=== PATIENT | female | born 1940 | race Caucasian/White ===

== ENCOUNTER → 2016-12-19 14:50 | Outpatient (CLI) | payer MEDICARE | END | disposition home or self-care (01) | LOC: D.LABREF 14:50 | PROVIDERS: Family Medicine | DX: S70.362A Insect bite (nonvenomous), left thigh, initial encounter (principal) ==

== ENCOUNTER → 2017-01-23 18:24 | Outpatient (CLI) | payer MEDICARE | END | disposition home or self-care (01) | LOC: D.LABREF 18:24 | DX: R05 Cough (principal) ==

== ENCOUNTER → 2017-01-31 12:57 | Outpatient (CLI) | payer MEDICARE | END | disposition home or self-care (01) | LOC: D.CT 12:57 | DX: R91.8 Other nonspecific abnormal finding of lung field (principal) ==

== ENCOUNTER → 2017-04-08 11:46 | Outpatient (CLI) | payer MEDICARE | END | disposition home or self-care (01) | LOC: D.RAD 11:46 | DX: I63.9 Cerebral infarction, unspecified (principal) ==

== ENCOUNTER → 2017-04-24 08:49 | Outpatient (CLI) | payer MEDICARE | END | disposition home or self-care (01) | LOC: D.ECHO 04-18 10:35 | DX: I63.9 Cerebral infarction, unspecified (principal) ==